=== PATIENT | female | born 1980 | race Caucasian/White ===

== ENCOUNTER 2019-07-06 09:58 | Emergency (ER) | payer OTHER ==
--- NOTE | 2019-07-06 10:06 | ED Physician Documentation ---
PD HPI URI - Stated complaint Stated Complaint: COUGH/CONGESTION - History obtained from History obtained from: Patient - History of Present Illness Timing - onset: How many weeks ago (3) Timing duration: Weeks (3) Timing details: Still present (worse the past 2-3 days with fever and productive cough.) Associated symptoms: Fever, Swollen nodes, Productive cough, Dyspnea. No: Nasal congestion, Sore throat Contributing factors: Sick contact (not for initial cough but her daughter with URI/cough the past several days.). No: Travel, Immunocompromised, COPD / asthma Improves by: No: Medication Worsened by: Activity Similar symptoms before: Has not had sx before Recently seen: Not recently seen Review of Systems Constitutional: reports: Fever, Myalgias Nose: denies: Rhinorrhea / runny nose, Congestion Throat: reports: Sore throat Cardiac: denies: Chest pain / pressure Respiratory: reports: Dyspnea, Cough. denies: Wheezing GI: reports: Diarrhea. denies: Nausea, Vomiting Neurologic: denies: Altered mental status, Headache PD PAST MEDICAL HISTORY - Past Medical History Cardiovascular: None Respiratory: None Neuro: None Endocrine/Autoimmune: None - Present Medications Home Medications: Ambulatory Orders Medication Instructions Recorded Confirmed Albuterol Sulf [Ventolin Hfa 1 - 2 puffs INH Q4HR PRN #1 inhaler 07/06/19 Inhaler] Benzonatate [Tessalon Perle] 100 mg PO TID PRN #25 capsule 07/06/19 Doxycycline Monohydrate 100 mg PO BID #14 tablet 07/06/19 Gabapentin 0 mg PO PRN PRN 07/06/19 07/06/19 dexAMETHasone [Decadron] 4 mg PO DAILY #5 tablet 07/06/19 - Allergies Allergies/Adverse Reactions: Allergies Allergy/AdvReac Type Severity Reaction Status Date / Time No Known Drug Allergies Allergy Verified 07/06/19 10:07 PD ED PE NORMAL - Vitals Vital signs reviewed: Yes - General General: Alert and oriented X 3, No acute distress, Well developed/nourished - HEENT HEENT: Moist mucous membranes, Pharynx benign - Neck Neck: Supple, no meningeal sign, No adenopathy - Cardiac Cardiac: RRR, No murmur - Respiratory Respiratory: Clear bilaterally - Abdomen Abdomen: Soft, Non distended - Derm Derm: Normal color, Warm and dry - Extremities Extremities: No tenderness to palpate, Normal ROM s pain, No edema, No calf tenderness / cord - Neuro Neuro: Alert and oriented X 3, No motor deficit, Normal speech Results - Vitals Vitals: Oxygen O2 Source Room air PD MEDICAL DECISION MAKING - ED course Complexity details: considered differential (prolonged cough with worse few days. Consider now bacterial bronchitis vs new viral illness atop persistent irritation from last one. Daughter with cough for few days as well. ), d/w patient Departure - Departure Disposition: 01 Home, Self Care Clinical Impression: Persistent cough for 3 weeks or longer Acute bronchitis Qualifiers: Bronchitis organism: unspecified organism Qualified Code(s): J20.9 - Acute bronchitis, unspecified Condition: Stable Record reviewed to determine appropriate education?: Yes Instructions: ED Upper Resp Infec Abx Tx Follow-Up: Krzysztof Hartley MD [Primary Care Provider] - Prescriptions: Albuterol Sulf [Ventolin Hfa Inhaler] 1 - 2 puffs INH Q4HR PRN #1 inhaler PRN Reason: Shortness Of Air/Wheezing Benzonatate [Tessalon Perle] 100 mg PO TID PRN #25 capsule PRN Reason: Cough dexAMETHasone [Decadron] 4 mg PO DAILY #5 tablet Doxycycline Monohydrate 100 mg PO BID #14 tablet Comments: Stay well-hydrated. Use albuterol inhaler 2 puffs 4 times a day for 7 to 10 days and extra times as needed for tightness and cough. Decadron steroid anti- inflammatory daily for 5 days to reduce bronchial inflammation. Tessalon for cough suppression. Doxycycline antibiotic twice daily for a week for potential bacterial infection at this point. Recheck if not improving well over the next several days to week. Discharge Date/Time: 07/06/19 11:03
[2019-07-06 10:07] VITALS: BP 118/91
[2019-07-06] MEDS ORDERED: DEXAMETHASONE 10 MG/ML VIAL PO STA (10:34)
[2019-07-06] MEDS ORDERED: CHERRY SYRUP 10 ML UDC PO ONE (10:34)
[2019-07-06] MEDS ORDERED: BENZONATATE 100 MG CAPSULE PO STA (10:34)
== END 2019-07-06 11:03 | disposition home or self-care (01) ==
LOC: ED 09:58
DX: J20.9 Acute bronchitis, unspecified (principal); R05 Cough
CPT/HCPCS: 99283; A9270

== ENCOUNTER 2019-10-17 08:47 | Outpatient (CLI) | payer OTHER ==
--- NOTE | 2019-10-17 11:30 | Mammography Report ---
Reason: RT BREAST PAIN,SILICONE IMPLANTS Procedure Date: 10/17/2019 Accession Number: [id number] / [id number] Procedure: JOSE MIGUEL - Diagnostic Dig Bilat CPT Code: Final Report FULL RESULT: EXAM: Diagnostic Dig Bilat DATE: 10/17/2019 10:07 AM CLINICAL HISTORY: Right breast pain. History of bilateral silicone implants approximately 9 years ago. TECHNIQUE: (B) - Bilateral CC and MLO, ML views were obtained. These views are obtained in standard and implant displaced fashion. Left spot CC, spot MLO images are also obtained. Focused left breast ultrasound is performed. COMPARISON: None PARENCHYMAL PATTERN: (D) - The breast(s) demonstrate(s) heterogeneously dense fibroglandular parenchyma. FINDINGS: There are bilateral intact-appearing retropectoral breast implants. There are no suspicious masses, calcifications, or areas of distortion in the right breast. An apparent architectural distortion is seen in the left inner upper breast approximately 6 cm from the nipple without associated mass or calcifications. Focused left breast ultrasound of the upper inner quadrant of the left breast is performed which demonstrates normal breast tissue and no suspicious mass or fluid collection. This potentially represents a postsurgical finding, probably benign. IMPRESSION: Probably Benign. BI-RADS category 3. RECOMMENDATION: (6MOS) - Recommend 6 month follow-up exam. Left breast mammography with 3-D imaging. BI-RADS CATEGORY: (3) - Probably Benign. STANDARD QUALIFYING STATEMENTS: 1. This examination was not reviewed with the aid of Computer-Aided Detection (CAD). 2. A negative or benign imaging report should not preclude biopsy if clinically suspicious findings are present. 3. Dense breasts may obscure an underlying neoplasm. 4. This examination was reviewed without the aid of 3D breast imaging (tomosynthesis).
== END 2019-10-17 08:48 | disposition home or self-care (01) ==
LOC: DI 08:47
PROVIDERS: ATTEND Student in an Organized Health Care Education/Training Program
DX: N64.4 Mastodynia (principal); Z98.82 Breast implant status
CPT/HCPCS: 76642; 77066

== ENCOUNTER 2020-02-16 13:18 | Outpatient (CLI) | payer OTHER ==
--- NOTE | 2020-02-23 11:45 | MRI Report ---
BREAST MRI OF BOTH BREASTS- WITH CAD: 02/16/2020 CLINICAL: Palpable left breast lump. Diffuse left breast pain. Bilateral augmentation. Comparison is made to exams dated: 10/17/2019 mammogram and 10/17/2019 ultrasound - [facility]. Informed consent was obtained from the patient. A vitamin E capsule was placed by the lump. Implant sequence, axial T1, and pre and post contrast T1 images of the right breast and pre and post contrast T1 images of the left breast were obtained with a dedicated breast coil. Post processing wa s performed including computer aided calculations of any tumor volumes and dimensions and 3D multipla corrine reconstruction. Images were obtained before and after IV administration of 5 cc Gadavist contrast . Bilateral breast tissue is heterogeneously dense with symmetric and mild enhancement. No masses or areas of abnormal contrast enhancement were seen in either breast. IMPRESSION: NEGATIVE Normal bilateral breast MRI. No mass in the left breast in the area of palpable concern. This exam was interpreted at Station ID: [id number]. Electronically Signed By: Carlos Becker M.D. jr/:02/19/2020 08:11:41 ACR BI-RADS Category 1: Negative 3341F BI-RADS CATEGORY: (1) - 1 Unspecified - other recall n/a LATERALITY: (B)
== END 2020-02-16 13:19 | disposition home or self-care (01) ==
LOC: DI 13:18
DX: N63.20 Unspecified lump in the left breast, unspecified quadrant (principal)
CPT/HCPCS: 77049; A9585

== ENCOUNTER 2023-10-21 13:35 | Outpatient (CLI) | payer OTHER | END 2023-10-21 13:36 | disposition home or self-care (01) | LOC: DI 13:35 | PROVIDERS: ATTEND Student in an Organized Health Care Education/Training Program | DX: R01.1 Cardiac murmur, unspecified (principal) | CPT/HCPCS: 93307 ==

== ENCOUNTER 2023-11-07 19:50 | Emergency (ER) | payer OTHER ==
[2023-11-07 19:58] VITALS: BP 130/84; O2SAT 100
--- NOTE | 2023-11-07 20:59 | ED Physician Documentation ---
History of Present Illness - Stated complaint Stated Complaint: L HAND INJ - Chief complaint Chief Complaint: Laceration - History obtained from History obtained from: Patient - History of Present Illness Timing: Today Pain level max: 2 Pain level now: 2 - Additonal information Additional information: Patient is a 43-year-old female who presents to the emergency department for laceration to the left thumb. She states that she touched a light socket today with exposed metal and was shocked. She is active [employer] but it is her last day today. She is unclear when her last tetanus shot was. She states that the bleeding has resolved with pressure. No fevers. No chills. No chest pain. No shortness of breath. No loss of consciousness. Household electrical circuit. Review of Systems Constitutional: denies: Fever, Chills GI: denies: Vomiting, Diarrhea Skin: denies: Rash PD PAST MEDICAL HISTORY - Past Medical History Past Medical History: Yes Cardiovascular: None Respiratory: None Neuro: None Endocrine/Autoimmune: None Derm: Other - Past Surgical History Past Surgical History: Yes /TEAM GUIDE: Tubal ligation - Present Medications Home Medications: Ambulatory Orders Medication Instructions Recorded Confirmed Albuterol Sulf [Ventolin Hfa 1 - 2 puffs INH Q4HR PRN #1 inhaler 07/06/19 Inhaler] Benzonatate [Tessalon Perle] 100 mg PO TID PRN #25 capsule 07/06/19 Doxycycline Monohydrate 100 mg PO BID #14 tablet 07/06/19 Gabapentin 0 mg PO PRN PRN 07/06/19 07/06/19 dexAMETHasone [Decadron] 4 mg PO DAILY #5 tablet 07/06/19 - Allergies Allergies/Adverse Reactions: Allergies Allergy/AdvReac Type Severity Reaction Status Date / Time No Known Drug Allergies Allergy Verified 11/07/23 19:59 - Social History Does the pt smoke?: No Smoking Status: Never smoker Does the pt drink ETOH?: Yes ETOH Use: Wine, Beer Does the pt have substance abuse?: No - Immunizations Immunizations are current?: No Immunizations: TDAP >10years/unknown - POLST Patient has POLST: No PD ED PE NORMAL - Vitals Vital signs reviewed: Yes - General General: Alert and oriented X 3, No acute distress - HEENT HEENT: Moist mucous membranes - Neck Neck: Supple, no meningeal sign - Cardiac Cardiac: RRR, No murmur, Strong equal pulses - Respiratory Respiratory: No respiratory distress, Clear bilaterally - Abdomen Abdomen: Soft, Non tender, Non distended - Derm Derm: Warm and dry - Extremities Extremities: Other (2 cm linear laceration to the pad of the left thumb. No nail injury. Neurovascular intact) - Neuro Neuro: Alert and oriented X 3 - Psych Psych: Normal mood, Normal affect Results - Vitals Vitals: Vital Signs - 24 hr 11/07/23 19:54 Temperature 36.8 C Heart Rate 83 Respiratory 16 Rate Blood Pressure 130/84 H O2 Saturation 100 Oxygen O2 Source Room air - EKG (time done) 2029 EKG releavant findings:: EKG personally interpreted by author of this note. Relevant findings are: Rate: Rate (enter#) (79) Rhythm: NSR [place]: Normal Intervals: Normal ID QRS: Normal Ischemia: Normal ST segments Procedures - Laceration (location) Left thumb Length in cm: 2 Wound type: Linear, Superficial, Into subcut fat Neurovascular status: Sensory intact, Motor intact, Vascular intact Tendon involvement: Tendon intact Wound preparation: Irrigated copiously NS Skin layer closure: Dermabond Other: Patient tolerated well, No complications, Neurovascular intact, Tetanus booster given PD Medical Decision Making - ED course Complexity details: considered differential, d/w patient ED course: 43-year-old female with a left thumb laceration. Repaired with Dermabond. Very superficial. Tdap given. Wound care instructions given at bedside including warnings of infection. She did have an electrical shock with household current. EKG is normal. No evidence of arrhythmia. No electrical espinosa on examination. Patient counseled regarding signs and symptoms for which I believe and urgent re-evaluation would be necessary. Patient with good understanding of and agreement to plan and is comfortable going home at this time This document was made in part using voice recognition software. While efforts are made to proofread this document, sound alike and grammatical errors may occur. Departure - Departure Disposition: 01 Home, Self Care Clinical Impression: Laceration of left thumb Qualifiers: Encounter type: initial encounter Damage to nail status: without damage Foreign body presence: without foreign body Qualified Code(s): S61.012A - Laceration without foreign body of left thumb without damage to nail, initial encounter Electric shock Qualifiers: Encounter type: initial encounter Qualified Code(s): T75.4XXA - Electrocution, initial encounter Condition: Good Instructions: ED Laceration Hand Follow-Up: CAROLANN MUELLER MD [Primary Care Provider] - Comments: Your EKG does not show any acute abnormalities today. Your laceration was repaired with Dermabond. This will fall off on its own. Do not apply any ointment as this may dissolve the glue. Please return for redness, swelling or drainage from the wound. You were given a tetanus shot tonight as well. Forms: PCP List
[2023-11-07] MEDS: TETANUS/DIPHTHERIA/PERTUSSIS 0.5 ML SYRINGE IM ONE (21:10)
== END 2023-11-07 21:16 | disposition home or self-care (01) ==
LOC: ED 19:50
DX: S61.012A Laceration without foreign body of left thumb without damage to nail, initial encounter (principal); T75.4XXA Electrocution, initial encounter; W26.8XXA Contact with other sharp object(s), not elsewhere classified, initial encounter; W86.0XXA Exposure to domestic wiring and appliances, initial encounter; Y92.009 Unspecified place in unspecified non-institutional (private) residence as the place of occurrence of the external cause; Z23 Encounter for immunization
CPT/HCPCS: 12001; 90471; 93005; 99283